=== PATIENT | female | born 2000 | race African-American/Black ===

== ENCOUNTER 2021-09-12 08:54 | Emergency (ER) | payer MEDICAID ==
[~2021-09-12] VITALS: Ht 165.1 cm; Wt 78.7 kg
[2021-09-12 09:24] VITALS: BP 106/65
[2021-09-12 09:26] LABS: BILIRUBIN,URINE NEGATIVE (NEG); CLARITY,URINE CLEAR; COLOR,URINE YELLOW; NITRITE,URINE NEGATIVE (NEG); PH,URINE 6.5 (<5.0-8.0); PROTEIN,URINE 30 mg/dL (NEG-TRACE); UROBILINOGEN,URINE 0.2 mg/dL (0.2 mg/dL)
--- NOTE | 2021-09-12 09:35 | PHYS DOC ---
General Adult EDM: Chief Complaint: URINARY FREQUENCY HPI: HPI: Patient is a 20 year old female who presents with 3 days of mid lower back pain, burning with urination, pain with urination. Patient states that when she wiped she could see blood on the toilet paper. Patient denies fever, nausea, vomiting, denies vaginal discharge, denies concern for STD, diarrhea, headache, dizziness, body aches. She has a history of in 2017 and a UTI. (SIMIN BOWERS APRN) Review of Systems: Review of Systems: Constitutional: Denies fever or chills. [] Eyes: Denies change in visual acuity. [] HENT: Denies nasal congestion or sore throat. [] Respiratory: Denies cough or shortness of breath. [] Cardiovascular: Denies chest pain or edema. [] GI: Denies abdominal pain, nausea, vomiting, bloody stools or diarrhea. [] : + dysuria. +Hematuria[] Musculoskeletal: +lower back pain or denies joint pain. [] Integument: Denies rash. [] Neurologic: Denies headache, focal weakness or sensory changes. [] Endocrine: Denies polyuria or polydipsia. [] Lymphatic: Denies swollen glands. [] Psychiatric: Denies depression or anxiety. [] (SIMIN BOWERS APRN) Heart Score: C/O Chest Pain: No (SIMIN BOWERS APRN) Allergies: Allergies: Allergies Coded Allergies Type Severity Reaction Last Updated Verified No Known Drug Allergies 09/12/21 No (SIMIN BOWERS APRN) Physical Exam: PE: Constitutional: Well developed, well nourished, no acute distress, non-toxic appearance. [] HENT: Normocephalic, atraumatic, bilateral external ears normal, oropharynx moist, no oral exudates, nose normal. [] Eyes: PERRLA, EOMI, conjunctiva normal, no discharge. [] Neck: Normal range of motion, no tenderness, supple, no stridor. [] Cardiovascular:Heart rate regular rhythm, no murmur [] Lungs & Thorax: Bilateral breath sounds clear to auscultation [] Abdomen: Bowel sounds normal, soft, Low mid tenderness, no masses, no pulsatile masses. [] Skin: Warm, dry, no erythema, no rash. [] Back: No tenderness, no CVA tenderness. [] Extremities: No tenderness, no cyanosis, no clubbing, ROM intact, no edema. [] Neurologic: Alert and oriented X 3, normal motor function, normal sensory function, no focal deficits noted. [] Psychologic: Affect normal, judgement normal, mood normal. [] (SIMIN BOWERS APRN) Current Patient Data: Labs: Laboratory Tests Test 09/12/21 09:17 POC Urine HCG, Qualitative Hcg negative (Negative) (SIMIN BOWERS APRN) EKG: EKG: [] (SIMIN BOWERS APRN) Radiology/Procedures: Radiology/Procedures: [] (SIMIN BOWERS APRN) Course & Med Decision Making: Course & Med Decision Making Pertinent Labs and Imaging studies reviewed. (See chart for details) See HPI. Alert and Oriented x4. Speaks in full clear sentences. Skin pink warm and dry. Abdomen is soft but slightly tender to low mid abdomen. No CVA tenderness. Afebrile. Mucus membranes moist. Urinalysis shows UTI. Patient placed on Keflex. [] (SIMIN BOWERS APRN) Dragon Disclaimer: Dragon Disclaimer: This electronic medical record was generated, in whole or in part, using a voice recognition dictation system. (SIMIN BOWERS APRN) Departure Departure Impression: Primary Impression: Urinary tract infection Qualified Codes: N39.0 - Urinary tract infection, site not specified; R31.9 - Hematuria, unspecified Disposition: 01 HOME / SELF CARE / HOMELESS Condition: STABLE Referrals: NO PCP (PCP) Patient Instructions: Urinary Tract Infection Additional Instructions: Drink plenty of water. Take medication as prescribed and with food. Take Ibuprofen for pain. Follow up with a primary care provider in a week especially if symptoms continue. Scripts Phenazopyridine Hcl (PYRIDIUM) 100 Mg Tablet 1 TAB PO TID for urinary discomfort for 3 Days, #9 TAB 0 Refills Prov: SIMIN BOWERS APRN 09/12/21 Cephalexin (KEFLEX) 500 Mg Capsule 1 CAP PO TID, #21 CAP Prov: SIMIN BOWERS APRN 09/12/21 Attending Signature I have participated in the care of this patient and I have reviewed and agree with all pertinent clinical information above including history, exam, and recommendations. (LIVIER DOWELL DO) SIMIN BOWERS HEATING ENGINEER Sep 12, 2021 09:35 LIVIER DOWELL DO Sep 12, 2021 13:13
[2021-09-12 09:36] LABS: BACTERIA,URINE MODERATE /HPF (0-FEW); WBC,URINE >40 /HPF (0-4)
[2021-09-12] MEDS ORDERED: PHEN100T82 PO (09:44)
[2021-09-12] MEDS ORDERED: CEPH500C PO (09:44)
== END 2021-09-12 10:00 | disposition home or self-care (01) ==
LOC: ER 08:54
DX: N39.0 Urinary tract infection, site not specified (principal); R31.9 Hematuria, unspecified
CPT/HCPCS: 81001; 81025; 87086; 99283

== ENCOUNTER 2021-10-02 00:51 | Emergency (ER) | payer MEDICAID ==
[~2021-10-02] VITALS: Ht 152.4 cm; Wt 68.0 kg
[~2021-10-02 00:51] MED LIST: CEPH500C PO; PHEN100T82 PO
[2021-10-02 01:17] VITALS: BP 112/73
[2021-10-02 01:19] LABS: BILIRUBIN,URINE NEGATIVE (NEG); CLARITY,URINE CLOUDY; COLOR,URINE YELLOW; NITRITE,URINE NEGATIVE (NEG); PROTEIN,URINE 100 mg/dL (NEG-TRACE); UROBILINOGEN,URINE 0.2 mg/dL (0.2 mg/dL)
[2021-10-02 01:21] LABS: U PREG PATIENT NEGATIVE (NEG)
[2021-10-02 01:33] LABS: RBC,URINE >40 /HPF (0-2); WBC,URINE >40 /HPF (0-4)
[2021-10-02 01:34] LABS: BACTERIA,URINE MODERATE /HPF (0-FEW)
[2021-10-02] MEDS ORDERED: NITR100C62 PO (01:44)
[2021-10-02] MEDS ORDERED: PHEN100T82 PO (01:44)
--- NOTE | 2021-10-02 01:44 | PHYS DOC ---
Past Medical History Past Surgical History: Smoking Status: Never Smoker Alcohol Use: None General Adult EDM: Chief Complaint: ABDOMINAL PAIN HPI: HPI: Patient is a 20 year old male with frequent urinary tract infections x4 years presents with a chief complaint of suprapubic discomfort with burning. Symptoms been ongoing for 1 day. Patient also complains of dysuria passing something in her urine. On exam patient has suprapubic discomfort. Significant other states patient has had multiple urinary tract infections in the past and has gone to multiple different hospitals but continues to have urinary tract infections. Patient does not have a primary care physician. Review of Systems: Review of Systems: Constitutional: Denies fever or chills. [] Eyes: Denies change in visual acuity. [] HENT: Denies nasal congestion or sore throat. [] Respiratory: Denies cough or shortness of breath. [] Cardiovascular: Denies chest pain or edema. [] GI: Denies abdominal pain, nausea, vomiting, bloody stools or diarrhea. [] : Positive dysuria positive hematuria Musculoskeletal: Denies back pain or joint pain. [] Integument: Denies rash. [] Neurologic: Denies headache, focal weakness or sensory changes. [] Endocrine: Denies polyuria or polydipsia. [] Lymphatic: Denies swollen glands. [] Psychiatric: Denies depression or anxiety. [] Heart Score: C/O Chest Pain: N/A Risk Factors: Risk Factors: DM, Current or recent (<one month) smoker, HTN, HLP, family history of CAD, obesity. Risk Scores: Score 0 - 3: 2.5% MACE over next 6 weeks - Discharge Home Score 4 - 6: 20.3% MACE over next 6 weeks - Admit for Clinical Observation Score 7 - 10: 72.7% MACE over next 6 weeks - Early Invasive Strategies Allergies: Allergies: Allergies Coded Allergies Type Severity Reaction Last Updated Verified No Known Drug Allergies 09/12/21 No Physical Exam: PE: General: alert, no acute distress. Skin: warm, dry and intact, no erythema, no rash. HENT: bilateral external ears normal, oropharynx moist, nose normal. Head:: Normocephalic, atraumatic. Neck: Trachea midline. Eyes: EOMI, Normal conjunctiva, No drainage CARDIOVASCULAR: Regular rate and rhythm RESPIRATORY: No respiratory distress Back: Full range of motion. MUSCULOSKELETAL: Full range of motion of bilateral upper and lower extremities. GASTROINTESTINAL: Abdomen soft without rebound or guarding. NEUROLOGICAL: Alert and noted to person, place and time. No neurological deficits observed Psychiatric: Cooperative. Normal judgment suprapubic discomfort tender to palpation Current Patient Data: Labs: Laboratory Tests Test 10/02/21 01:05 10/02/21 01:10 Urine Color Yellow Urine Clarity Cloudy Urine pH 6.0 (<5.0-8.0) Urine Specific [place] 1.020 (1.000-1.030) Urine Protein 100 mg/dL (NEG-TRACE) Urine Glucose (UA) Negative mg/dL (NEG) Urine Ketones (Stick) 15 mg/dL (NEG) Urine Blood Large (NEG) Urine Nitrite Negative (NEG) Urine Bilirubin Negative (NEG) Urine Urobilinogen Dipstick 0.2 mg/dL (0.2 mg/dL) Urine Leukocyte Esterase Large (NEG) Urine RBC >40 /HPF (0-2) Urine WBC >40 /HPF (0-4) Urine Bacteria Moderate /HPF (0-FEW) Urine Test Negative (NEG) POC Urine HCG, Qualitative Hcg negative (Negative) Vital Signs: Vital Signs Date Time Temp Pulse Resp B/P (MAP) Pulse Ox O2 Delivery O2 Flow Rate FiO2 10/02/21 01:17 98.3 93 16 112/73 (86) 100 Room Air 98.3 EKG: EKG: [] Radiology/Procedures: Radiology/Procedures: [] Course & Med Decision Making: Course & Med Decision Making Pertinent Labs and Imaging studies reviewed. (See chart for details) [] Patient's urine consistent with a urinary tract infection. Patient treated with Pyridium and Macrobid. Patient discharged with prescription of both. Patient advised to follow-up with her primary care physician. Tamara Disclaimer: Tamara Disclaimer: This electronic medical record was generated, in whole or in part, using a voice recognition dictation system. Departure Departure Impression: Primary Impression: Urinary tract infection Disposition: HOME / SELF CARE / HOMELESS Condition: STABLE Referrals: NO PCP (PCP) Patient Instructions: Urinary Tract Infection Scripts Nitrofurantoin Monohyd/M-Cryst (MACROBID 100 MG CAPSULE) 100 Mg Capsule 1 CAP PO BID for 7 Days, #14 CAP 0 Refills Prov: JOSÉ MIGUEL VILLEGAS DO 10/02/21 Phenazopyridine Hcl (PYRIDIUM) 100 Mg Tablet 1 TAB PO TID for urinary discomfort for 2 Days, #6 TAB 0 Refills Prov: JOSÉ MIGUEL VILLEGAS DO 10/02/21 JOSÉ MIGUEL VILLEGAS DO Oct 02, 2021 01:44
[2021-10-02] MEDS ORDERED: NITROFURANTOIN MONOHYD/M-CRYST 100 MG CAPSULE. PO ONE (02:00)
[2021-10-02] MEDS ORDERED: PHENAZOPYRIDINE 200 MG TABLET. PO ONE (02:00)
== END 2021-10-02 02:05 | disposition home or self-care (01) ==
LOC: ER 00:51
DX: N39.0 Urinary tract infection, site not specified (principal)
CPT/HCPCS: 81001; 81025; 87086; 99283

== ENCOUNTER 2021-11-11 07:07 | Emergency (ER) | payer MEDICAID ==
[~2021-11-11] VITALS: Ht 162.6 cm; Wt 79.9 kg
[~2021-11-11 07:07] MED LIST changes: +NITR100C62 PO
[2021-11-11 08:00] VITALS: BP 112/72
[2021-11-11] MEDS ORDERED: IV NORMAL SALINE 500ML BAG 500 ML IV ONE (08:15)
[2021-11-11] MEDS ORDERED: PROCHLORPERAZINE 10 MG/2 ML VIAL. IV ONE (08:15)
[2021-11-11] MEDS ORDERED: KETOROLAC 30 MG/ML VIAL. IVP ONE (08:15)
--- NOTE | 2021-11-11 08:16 | PHYS DOC ---
Past Medical History Past Medical History: No Pertinent History Past Surgical History: Additional Past Surgical Histo: Smoking Status: Never Smoker Alcohol Use: None General Adult EDM: Chief Complaint: HEADACHE HPI: HPI: Patient is a 21 year old female who presents with complaints of headache. States that she has had subjective fevers, chills, body aches, and loss of taste/smell starting approximately 5 days ago. Accompanying these other symptoms she has had a constant headache. Has taken Tylenol without relief. Last dose last night. Pain is primarily in the top of the head. Does complain of some neck discomfort. Fevers have not been measured. No chronic medications. No medication allergies. No immunosuppressive conditions. Not vaccinated against Covid. No known Covid contacts. Review of Systems: Review of Systems: Constitutional: Reports subjective fever chills. Eyes: Denies change in visual acuity. [] HENT: Reports change in taste/smell. Denies nasal congestion or sore throat. [] Respiratory: Denies cough or shortness of breath. [] Cardiovascular: Denies chest pain or edema. [] GI: Denies abdominal pain, nausea, vomiting, bloody stools or diarrhea. [] : Denies dysuria. [] Musculoskeletal: Denies back pain or joint pain. [] Integument: Denies rash. [] Neurologic: Reports headache. No focal weakness or sensory changes. [] Psychiatric: Denies depression or anxiety. [] Heart Score: C/O Chest Pain: No Current Medications: Current Medications Medications (Trade) Dose Ordered Sig/Michael Start Time Stop Time Status Last Admin Dose Admin Ketorolac Tromethamine (Toradol 30mg Vial) 15 mg 1X ONCE 11/11/21 08:15 11/11/21 08:16 UNV Prochlorperazine Edisylate (Compazine) 10 mg 1X ONCE 11/11/21 08:15 11/11/21 08:16 UNV Sodium Chloride 500 ml @ 500 mls/hr 1X ONCE 11/11/21 08:15 11/11/21 09:14 UNV Allergies: Allergies: Allergies Coded Allergies Type Severity Reaction Last Updated Verified No Known Drug Allergies 09/12/21 No Physical Exam: PE: Constitutional: Mild diaphoresis, ill-appearing but nontoxic. HENT: Normocephalic, atraumatic Eyes: PERRLA, EOMI, conjunctiva normal, no discharge. [] Neck: Moves neck [id number] and can put chin to chest. She is slow to do so and does complain of some mild discomfort in the back of her head. Cardiovascular:Heart rate regular rhythm, no murmur [] Lungs & Thorax: Bilateral breath sounds clear to auscultation [] Abdomen: Bowel sounds normal, soft, no tenderness, no masses, no pulsatile masses. [] Skin: Warm, dry, no erythema, no rash. [] Extremities: No tenderness, no cyanosis, no clubbing, ROM intact, no edema. [] Neurologic: Alert and oriented X 3, normal motor function, normal sensory function, no focal deficits noted. [] Psychologic: Affect normal, judgement normal, mood normal. [] Current Patient Data: Vital Signs: Vital Signs Date Time Temp Pulse Resp B/P (MAP) Pulse Ox O2 Delivery O2 Flow Rate FiO2 11/11/21 08:00 99.1 98 16 112/72 (85) 98 Room Air 99.1 EKG: EKG: [] Radiology/Procedures: Radiology/Procedures: [] Course & Med Decision Making: Course & Med Decision Making Pertinent Labs and Imaging studies reviewed. (See chart for details) Is a 21-year-old female who presents with subjective fever/chills, body aches, loss of taste/smell, and headaches for the past 5 days. On arrival is afebrile, vital signs stable. There is a concern for Covid. We will send Covid and flu swabs. Will treat headache and reassess. Considered meningitis, however with other accompanying symptoms, the duration of symptoms, normal vital signs, and nontoxic-appearance, I feel that this is less likely. Not thunderclap, no trauma. Will defer any imaging. 0815 COVID + which explains symptoms well. Will not pursue further testing in the ED. Oxygenating well and has not co mplaints of SOB. Do not feel CXR is needed. Will be discharged with isolation precautions, return precautions, and expectant management. [id number] Tamara Disclaimer: Tamara Disclaimer: This electronic medical record was generated, in whole or in part, using a voice recognition dictation system. Departure Departure Impression: Primary Impression: COVID-19 Additional Impression: Headache Disposition: HOME / SELF CARE / HOMELESS Condition: STABLE Referrals: NO PCP (PCP) Additional Instructions: You have Covid. Isolation: -You will need to isolate for a minimum of 10 days from your symptom onset (11/18 at the earliest) -At the 10-day luis e, you must also have at least 3 days of no fever/chills, and improving symptoms before you end your isolation. -If you are continuing to be symptomatic or having high fevers you need to continue your isolation until you meet the above requirements. -After you recover in your isolation, please continue to wear a mask in public areas for the next several weeks. Monitoring: -Please buy a home pulse oximeter. These can be purchased [id number] at most pharmacies, or on [employer]. -Check your oxygen levels once a day. If they are persistently below 90% please return to the emergency department. -If you develop chest pain or worsening shortness of breath please return to the emergency department. For fever/body aches tylenol and ibuprofen are best used on a schedule. Please alternate between the two. -Tylenol 1000 mg every 6 hours (do not exceed 4000 mg in one day) -Ibuprofen 400-600 mg every 6 hours. Take with food. Do not take for more than 1 week. CASE LUGO MD Nov 11, 2021 08:16
[2021-11-11 09:27] LABS: INFLUENZA A PATIENT NEGATIVE (NEGATIVE); INFLUENZA B PATIENT NEGATIVE (NEGATIVE)
== END 2021-11-11 10:10 | disposition home or self-care (01) ==
LOC: ER 07:07
DX: U07.1 COVID-19 (principal); R51.9 Headache, unspecified
CPT/HCPCS: 81025; 87426; 87804; 96361; 96374; 96375; 99284; J0780; J1885; J7040